=== PATIENT | female | born 1980 | race American Indian/Alaskan Native ===

== ENCOUNTER 2018-10-22 06:28 | Day surgery (SDC) | payer MEDICAID, OTHER ==
[2018-10-22] MEDS ORDERED: NACL 0.9% 1000 ML 1,000 ML ONE (07:37)
--- NOTE | 2018-10-22 07:44 | Anesthesia Day of Surgery ---
Anesthesia Day of Surgery - Day of Surgery Patient Examined: Yes Patient H&P Reviewed: Yes Patient is NPO: Yes Beta Blockers: No
--- NOTE | 2018-10-22 07:45 | Anesthesia Consultation ---
Anesthesia Consult and Med Hx Date of service: 10/22/18 - Airway Anesthetic Teeth Evaluation: Good ROM Head & Neck: Adequate Mental/Hyoid Distance: Adequate Mallampati Class: Class II Intubation Access Assessment: Probably Good - Pulmonary Exam CTA: Yes - Cardiac Exam Cardiac Exam: No Murmur - Pre-Operative Health Status ASA Pre-Surgery Classification: ASA2 Proposed Anesthetic Plan: MAC - Pulmonary Hx Smoking: No Hx Asthma: No - Cardiovascular System Hx Hypertension: No Hx Coronary Artery Disease: No Hx Heart Attack/AMI: No Hx Angina: No - Central Nervous System Hx Seizures: No CVA: No - Gastrointestinal Hx Gastroesophageal Reflux Disease: Yes - Endocrine Hx Renal Disease: No Hx Liver Disease: No Hx Non-Insulin Dependent Diabetes: No Hx Thyroid Disease: No - Hematic Hx Anemia: No Hx Sickle Cell Disease: No - Additional Comments Anesthesia Medical History Comments: Fibromyalgia and GERD
[2018-10-22] MEDS ORDERED: VERSED ONE (07:48)
[2018-10-22] MEDS ORDERED: XYLOCAINE 2% INFILTRATI ONE (07:48)
[2018-10-22] MEDS ORDERED: DIPRIVAN 10 MG/ML IV ONE (07:48)
[2018-10-22] MEDS ORDERED: WATER FOR IRRIG STERILE IR ONE (07:57)
[2018-10-22] MEDS ORDERED: NACL 0.9% 1000 ML 1,000 ML IV SCH (08:00)
--- NOTE | 2018-10-22 08:23 | Operative Report ---
Operative Report Operative Report: DATE OF SERVICE: 10/22/18 SURGEON: Bradly Fletcher MD EGD with biopsy REPORT PREOPERATIVE DIAGNOSIS and POSTOPERATIVE DIAGNOSIS: epigastric abdominal pain ESTIMATED BLOOD LOSS: minimal DESCRIPTION OF PROCEDURE: A high-resolution EGD scope was passed through the oropharynx, esophagus, stomach, and second portion of duodenum. The scope was carefully withdrawn. Retroflexion was performed in the stomach. At the end of the procedure, the scope was cleaned using normal technique. Vital signs monitored continuously throughout. SEDATION: Provided by [facility]. COMPLICATIONS: None. FINDINGS: * No gross lesions entire duodenum * Mild gastritis of the antrum; Biopsies were taken to rule out H. Pylori infection. A total of 6 biopsies were taken, 2 from the antrum, 1 from the incisura, 2 from the body. * GE junction at 34cm * 2cm hiatal hernia * Remainder of the exam was normal RECOMMENDATIONS: * f/u path * Severity of gastritis is unlikely to explain the patient's symptoms, will refer to surgeon for evaluation for cholecystectomy
[2018-10-22 11:31] VITALS: BP 127/74
== END 2018-10-22 06:29 | disposition home or self-care (01) ==
LOC: GIO 06:28
PROVIDERS: ATTEND Student in an Organized Health Care Education/Training Program
DX: K29.50 Unspecified chronic gastritis without bleeding (principal); K21.9 Gastro-esophageal reflux disease without esophagitis; Z83.71 Family history of colonic polyps; Z98.51 Tubal ligation status; Z79.899 Other long term (current) drug therapy
CPT/HCPCS: 43239; 81025; 88305; 88342; J2250; J2704; J7030